=== PATIENT | female | born 1970 | race Two or more races ===

== ENCOUNTER 2025-03-07 08:18 | Outpatient (REF) | payer MEDICAID, SELFPAY ==
--- OUTSIDE RECORDS SUMMARY | 2025-03-07 08:25 | XMS_ITS | Encounter Summary ---
Author Organization [employer] Address [address] [facility] [address] [place] [address] Care Team Providers Care Teacher Public Health Name Role Phone Sade Pandya MD Primary Care Provider [phone] Encounter Details Date Type Department Care Team (Latest Contact Info) Description 03/06/2025 Travel Social History Tobacco Use Types Packs/Day Years Used Date Smoking Tobacco: Never Smokeless Tobacco: Never Alcohol Answer Date Recorded Frequency of Alcohol Consumption Not on file 07/23/2023 Average Number of Drinks Not on file 023 Frequency of Binge Drinking Not on file 02/2023 Score 0 07/23/2023 Depression Answer Date Recorded Patient Health Questionnaire-9 Score 6 04/26/2024 Patient Health Questionnaire-9 Score 6 04/26/2024 Last PHQ-9: Questionnaire Data Not on file 0 04/26/2024 Housing Stability Answer Date Recorded What is your housing situation today? I have jenni pastor 03/06/[address] you li ve. Do you have problems with any of the following? None of the above 03/06/2025 Food Insecurity Answer Date Recorded Within the past 12 months, y ou worried that your food would run out before you got money to buy more: Never True 03/06/2025 Within the past 12 months,th e food you bought just didn't last and you didn't have enough money to get more: Never True Transportation Answer Date Recorded In the past 12 months, has l ack of transportation kept you from medical appts, meetings, work or from getting things needed for daily living? No 03/06/2025 Utilities Answer Date Recorded In the past 12 months, has t he electric, gas, oil or water company threatened to shut off services in your home? No 03/06/2025 Depression Answer Date Recorded Patient Health Questionnaire-2 Score 1 04/26/2024 Internet Access Answer Date Recorded Internet Access Q1 Yes 03/06/2025 Internet Access Q2 Not on file 03/06/2025 Comments Unknown Sex and Gender Information Value Date Recorded Sex Assigned at Female 05/07/2023 11:21 AM EDT Legal Sex Female 11:15 AM EDT Gender Identity Female 05/07/2023 11:21 AM EDT Sexual Orientation Don't know 05/07/2023 11 :21 AM EDT documented as of this encounter Plan of Treatment Upcoming Encounters Date Type Department Care Team (Late st Contact Info) Description 03/14/2025 1:30 PM EDT Clinical Support [facility] [address] [place] [address] 04/17/2025 10:00 AM EDT Office Visit [facility] [address] [place] [address] Sade aPndya MD [address] [place] [address] documented as of this encounter Visit Diagnoses Not on filedocumented in this encounter Additional Health Concerns Assessment Noted Time PHQ-9 Depression Total Score: 6 04/26/20 24 9:56 AM EDT documented as of this encounter Care Teams Teacher Public Health Relationship Specialty Start Date End Date Sade Pandya MD [address] [place] [address] PCP - General Family Medicine 09/01/23 documented as of this encounter
--- OUTSIDE RECORDS SUMMARY | 2025-03-07 08:25 | XMS_ITS | Encounter Summary ---
Author Organization [employer] Address [address] [facility] 7t [place] [address] Care Team Providers Care Daycare Worker Name Role Phone Sade Pandya MD Primary Care Provider [phone] Reason for Visit * Reason Onset Date Comments New Patient 06/19/2023 Encounter Details Date Type Department Care Team (Late st Contact Info) Description 06/19/2023 Telephone [facility] [address] [place] [address] Sade Pandya MD [address] [place], [place] [phone] New Patient Social History Tobacco Use Types Packs/Day Years Used Date Smoking Tobacco: Never Assessed Comments Unknown Sex and Gender Information Value Date Recorded Sex Assigned at Female 05/07/2023 11:21 AM EDT Legal Sex Female 11:15 AM EDT Gender Identity Female 05/07/2023 11:21 AM EDT Sexual Orientation Don't know 05/07/2023 11 :21 AM EDT documented as of this encounter Miscellaneous Notes * Telephone Encounter - Chelsey Duffy - 06/19/2023 11:57 AM EDT PAR Chelsey Freedman called pt to Offer ENGINEERING TEST MECHANIC appt. Pt demographics and insurance information were verified. Pt reports the following medical conditions: Severe Migraines, Blood pressure, Depression, andSleeping problems. Pt is currently taking medication: Sumatriptan 100 Mg Tablet, Metoprolol 25 Mg Tablet, Terazosin, Vitamin D, Zolpidem 1 mg Tablet, and Alprazolam. Pt given ENGINEERING TEST MECHANIC appt with PCP Dr. Pandya on 07/23/2023 @ 1:15 pm. Pt will be sent appt reminder card and medical release form and agrees to complete and to return to medical records prior to ENGINEERING TEST MECHANIC appt. documented in this encounter Plan of Treatment Upcoming Encounters Date Type Department Care Team (Late st Contact Info) Description 03/14/2025 1:30 PM EDT Clinical Support [facility] [address] [place] [address] 04/17/2025 10:00 AM EDT Office Visit [facility] [address] [place] [address] Sade Pandya MD [address] [place] [address] documented as of this encounter Visit Diagnoses Not on filedocumented in this encounter Care Teams Daycare Worker Relationship Specialty Start Date End Date Sade Pandya MD [address] [place] [address] PCP - General Family Medicine 09/01/23 documented as of this encounter
--- OUTSIDE RECORDS SUMMARY | 2025-03-07 08:25 | XMS_ITS | Encounter Summary ---
Author Organization [employer] Address [address] [facility] [address] [place] [address] Care Team Providers Care Goldsmith Apprentice Name Role Phone Sade Pandya MD Primary Care Provider [phone] Encounter Details Date Type Department Care Team (Late st Contact Info) Description 09/22/2023 Orders Only [facility] [address] [place], [place] [phone] Vivek Lema MD [address] [place] [address] Social History Tobacco Use Types Packs/Day Years Used Date Smoking Tobacco: Never Smokeless Tobacco: Never Alcohol Answer Date Recorded Frequency of Alcohol Consumption Not on file 07/23/2023 Average Number of Drinks Not on file 023 Frequency of Binge Drinking Not on file 02/2023 Score 0 07/23/2023 Depression Answer Date Recorded Patient Health Questionnaire-9 Score 13 07/23/2023 Housing Stability Answer Date Recorded What is your housing situation today? I have jenni pastor 08/03/[address] you li ve. Do you have problems with any of the following? None of the above 08/03/2023 Food Insecurity Answer Date Recorded Within the past 12 months, y ou worried that your food would run out before you got money to buy more: Never True 08/03/2023 Within the past 12 months,th e food you bought just didn't last and you didn't have enough money to get more: Never True Transportation Answer Date Recorded In the past 12 months, has l ack of transportation kept you from medical appts, meetings, work or from getting things needed for daily living? No 08/03/2023 Utilities Answer Date Recorded In the past 12 months, has t he electric, gas, oil or water [employer] threatened to shut off services in your home? No 08/03/2023 Depression Answer Date Recorded Patient Health Questionnaire-2 Score 3 07/23/2023 Comments Unknown Sex and Gender Information Value [...] Description 03/14/2025 1:30 PM EDT Clinical Support [facility] [address] [place] [address] 04/17/2025 10:00 AM EDT Office Visit [facility] [address] [place] [address] Sade Pandya MD [address] [place] [address] documented as of this encounter Visit Diagnoses Not on filedocumented in this encounter Additional Health Concerns Assessment Noted Time PHQ-9 Depression Total Score: 13 023 3:03 PM EDT documented as of this encounter Care Teams Goldsmith Apprentice Relationship Specialty Start Date End Date Sade Pandya MD [address] [place] [address] PCP - General Family Medicine 09/01/23 documented as of this encounter
--- OUTSIDE RECORDS SUMMARY | 2025-03-07 08:25 | XMS_ITS | Encounter Summary ---
Author Organization [employer] Address [address] [facility] [address] [place] [address] Care Team Providers Care Trust Accounts Supervisor Name Role Phone Sade Pandya MD Primary Care Provider [phone] Reason for Visit * Reason Onset Date Comments Appointment Confirmation 02/07/2025 Encounter Details Date Type Department Care Team ([facility] st Contact Info) Description 02/07/2025 Telephone [facility] [address] [place], [place] [phone] Sade Pandya MD [address] [place], [place] [phone] Appointment Confirmation Social History Tobacco Use Types Packs/Day Years [...] Recorded Patient Health Questionnaire-2 Score 1 04/26/2024 Comments Unknown Sex and Gender Information Value Date Recorded Sex Assigned at Female 05/07/2023 11:21 AM EDT Legal Sex Female 11:15 AM EDT Gender Identity Female 05/07/2023 11:21 AM EDT Sexual Orientation Don't know 05/07/2023 11 :21 AM EDT documented as of this encounter Miscellaneous Notes * Telephone Encounter - Fiona Disla - 02/07/2025 11:05 AM EDT Tc from pt requesting office visit. Denied triage. Contact pt at [phone] documented in this encounter Plan of Treatment Upcoming Encounters Date Type Department Care Team (Late st Contact Info) Description 03/14/2025 1:30 PM EDT Clinical Support [facility] [address] [place] [address] 04/17/2025 10:00 AM EDT Office Visit [facility] [address] [place] [address] Sade Pandya MD [address] [place] [address] documented as of this encounter Visit Diagnoses Not on filedocumented in this encounter Additional Health Concerns Assessment Noted Time PHQ-9 Depression Total Score: 6 04/26/20 24 9:56 AM EDT documented as of this encounter Care Teams Trust Accounts Supervisor Relationship Specialty Start Date End Date Sade Pandya MD [address] [place] [id number] PCP - General Family Medicine 09/01/23 documented as of this encounter
--- OUTSIDE RECORDS SUMMARY | 2025-03-07 08:25 | XMS_ITS | Encounter Summary ---
Author Organization [employer] Address [address] [address] [place] [address] Care Team Providers Care Family Service Counselor Name Role Phone Sade Pandya MD Primary Care Provider [phone] Encounter Details Date Type Department Care Team (Late st Contact Info) Description 03/06/2025 1:00 PM EDT Office Visit [facility] [address] [place], [place] [phone] Sade Pandya MD [address] [place] [address] Migraine with aura and without status migrainosus, not intractable (Primary Dx); Hypertension, unspecified type Social History Tobacco Use Types Packs/Day Years [...] AM EDT documented as of this encounter Last Filed Vital Signs Vital Sign Reading Time Taken Comments Blood Pressure 134/90 03/06/2025 1:25 PM EDT Pulse 60 03/06/2025 1:06 PM EDT Temperature 36.8 ??C (98.2 ??F) 03/06/2025 1:06 PM ED T Respiratory Rate 20 03/06/2025 1:06 PM EDT Oxygen Saturation 98% 03/06/2025 1:06 PM EDT Inhaled Oxygen Concentration - - Weight 69.8 kg (153 lb 12.8 oz) 03/06/2025 1:06 PM EDT Height 160 cm (5' 3 ) 03/06/2025 1:06 PM EDT Body Mass Index 27.24 03/06/2025 1:06 PM EDT documented in this encounter Plan of Treatment Upcoming Encounters Date Type Department Care Team (Late st Contact Info) Description 03/14/2025 1:30 PM EDT Clinical Support [facility] [address] [place] [address] 04/17/2025 10:00 AM EDT Office Visit [facility] [address] [place] [address] Sade Pandya MD [address] [place] [address] Scheduled Orders Name Type Priority Associated Diagnoses Orde r Schedule CBC auto differential Lab Routine Hypertension, unspecified type Expected: 03/06/2025 (Approximate), Expires: 03/06/2026 Comprehensive Metabolic Panel Lab Routine Hypertension, unspecified type Expected: 03/06/2025 (Approximate), Expires: 03/06/2026 Albumin, Random Urine W/Creatinine Lab Routine Hypertension, unspecified type Expected: 03/06/2025 (Approximate), Expires: 03/06/2026 TSH W/Reflex to FT4 Lab Routine Hypertension, unspecified type Expected: 03/06/2025 (Approximate), Expires: 03/06/2026 Lipid Panel, Standard Lab Routine Hypertension, unspecified type Expected: 03/06/2025 (Approximate), Expires: 03/06/2026 documented as of this encounter Visit Diagnoses Diagnosis Migraine with aura and without status migrainosus, not intractable- Primary Hypertension, unspecified type documented in this encounter Additional Health Concerns Assessment Noted Time PHQ-9 Depression Total Score: 6 04/26/20 24 9:56 AM EDT documented as of this encounter Care Teams Family Service Counselor Relationship Specialty Start Date End Date Sade Pandya MD [address] [place] [address] PCP - General Family Medicine 09/01/23 documented as of this encounter
--- OUTSIDE RECORDS SUMMARY | 2025-03-07 08:25 | XMS_ITS | Clinical Summary ---
Author Organization [employer] Address [address] [facility] [address] [place] [address] Care Team Providers Care Tallow Refiner Name Role Phone Sade Pandya MD Primary Care Provider [phone] Allergies No known active allergies Medications * This document contains information received from the source organization and may not represent a complete record from that organization. Omeprazole 20 MG tablet delayed-release Take 20 mg by mouth in the morning. 90 tablet 1 07/23/20 23 Active Cholecalciferol (Vitamin D3 Gummies) 25 MCG (1000 UT) chewable tablet Chew 1 tablet in the morning. 90 tablet 1 12/14/19 24 Active hydrocortisone (Anusol-HC) 2.5 % rectal creamIndication s:Hemorrhoids, unspecified hemorrhoid type Insert into the rectum 2 times daily. 90 g 12/14/19 24 Active metoprolol succinate XL (Toprol-XL) 25 MG 24 hr tablet TAKE ONE TABLET EVERY MORNING, DO NOT BREAK, CRUSH, DISSOLVE OR CHEW 90 tablet 1 09/20/20 24 Active hydroCHLOROthia zide (HYDRODiuril) 25 MG tablet TAKE ONE TABLET EVERY MORNING 90 tablet 1 09/20/20 24 Active SUMAtriptan (Imitrex) 100 MG tablet TAKE ONE TABLET EVERY DAY NEEDED FOR MIGRAINE 9 tablet 3 01/06/20 25 Active FLUoxetine (PROzac) 10 MG capsuleIndicati ons:Moderate major depression, single episode (CMS/HCC) Take 1 capsule (10 mg) by mouth in the morning. 30 capsule 1 02/22/20 25 025 Active QUEtiapine (SEROquel) 100 MG tabletIndicatio ns:Anxiety Take 1 tablet (100 mg) by mouth at bedtime. 30 tablet 1 02/22/20 25 025 Active ALPRAZolam (Xanax) 1 MG tabletIndicatio ns:Anxiety Take 1 tablet (1 mg) by mouth if needed at bedtime for anxiety or sleep for up to 28 days. 28 tablet 02/22/20 25 025 Active zolpidem (Ambien) 5 MG tabletIndicatio ns:Insomnia, unspecified type Take 1 tablet (5 mg) by mouth if needed at bedtime for sleep for up to 28 days. 28 tablet 02/22/20 25 025 Active topiramate (Topamax Sprinkle) 25 MG capsule TAKE ONE CAPSULE EVERY NIGHT FOR ONE WEEK THEN TAKE TWO CAPSULES NIGHTLY FOR ONE WEEK THEN TAKE THREE CAPSULES EVERY NIGHT 11/12/19 24 025 Discontinued(Th erapy completed) QUEtiapine (SEROquel) 100 MG tabletIndicatio ns:Anxiety Take 1 tablet (100 mg) by mouth at bedtime. 30 tablet 1 01/18/20 25 025 Discontinued(Re order (will not trigger notification to Pharmacy)) zolpidem (Ambien) 5 MG tabletIndicatio ns:Insomnia, unspecified type Take 1 tablet (5 mg) by mouth if needed at bedtime for sleep. 28 tablet 01/18/20 25 025 Discontinued(Re order (will not trigger notification to Pharmacy)) ALPRAZolam (Xanax) 1 MG tabletIndicatio ns:Anxiety Take 1 tablet (1 mg) by mouth if needed at bedtime for anxiety or sleep. 28 tablet 01/18/20 25 025 Discontinued(Re order (will not trigger notification to Pharmacy)) Active Problems Problem Noted Date Diagnosed Date Insomnia 01/17/2025 Chronic pain of right knee 03/11/2024 Polyarthralgia 03/11/2024 Chronic right hip pain 03/11/2024 Mood disorder 03/08/2024 Assessment & Plan (04/26/2024 10:41 AM EDT): With anxiety and psychotic features (visual hallucinations). Intermittent sleep problems. Forgetful. Previously thought to be unipolar depression but now reports history of weeks where I feel happy, fine; then weeks like now where I feel very sad and can't even do anything. Supported by failure of multiple antidepressants. Found increased Quetiapine 200 mg too strong and requests resumption of Quetiapine 100 mg at bedtime. Continue Alprazolam 1 mg BID prn and Zolpidem 10 mg at bedtime prn, although it would be preferable to avoid controlled substances. Pt previously stated she wished to defer counseling referral. Explained to patient that I would not be able to fill out the mental health special circumstances form for citizenship exam. Suggested strategies for practice/prep to minimize anxiety. Since this provieder will be retiring, patient will be referred to new [facility] Psychiatric Prescriber. She is aware that appts will be via televisit and that provider will not be an [facility] employee, and gives permission to share PHI. Any issues or concerns contact the health center. All her questions were answered and I have wished her well. She agrees with the plan. Assessment & Plan (03/08/2024 10:22 AM EDT): With anxiety and psychotic features (visual hallucinations). Intermittent sleep problems. Forgetful. Previously thought to be unipolar depression but now reports history of weeks where I feel happy, fine; then weeks like now where I feel very sad and can't even do anything. Supported by failure of multiple antidepressants. At this time will stop Sertraline 50 mg and will not rechallenge with antidepressant. Will increase to Quetiapine 200 mg at bedtime. Could also consider Depakote or similar mood stabilizer, but deferring for now. Continue Alprazolam 1 mg BID prn and Zolpidem 10 mg at bedtime prn, although it would be preferable to avoid controlled substances. Pt previously stated she wished to defer counseling referral. On 11/19/2023 provider informed the pt thatI would be retiring, and we would only be working together for a few months, but she wanted to start the process anyway. Will have final appt with me in 6 weeks and then transfer care to new [facility] Psychiatric Prescriber. She agrees with the plan. Cervical cancer screening 12/14/2023 Assessment & Plan (12/15/2023 10:24 AM EST): FU Pap results. Per [facility] kimberly will need PAP smear in the next 5 years if today's normal. FU results. No concerns for domestic violence. External prolapsed hemorrhoids 12/14/2023 Varicose veins of both lower extremities 024 Assessment & Plan (12/14/2023 4:36 PM EST): Patient has painful varicose veins on ilateral knees and upper thighs. Referred to Vascular surgery Hemorrhoids 12/14/2023 Assessment & Plan (12/14/2023 4:42 PM EST): Prescribed Hydrocortisone 2.5% for hemorrhoids Episode of recurrent major depressive disorder 0 11/19/2023 Assessment & Plan (01/21/2024 4:11 PM EDT): Lifetime history of depression and anhedonia, with reported history of anxiety and active prescription for Alprazolam, but symptoms do not support this diagnosis. Also has been taking Seroquel 50 mg at bedtime for many years, no longer finding it helpful for sleep, but denies history of hallucinations or mood swings. Single episode of delusional thinking 20 years ago. Poor appetite and unintentional weight loss. Has reportedly tried many different antidepressants without effect. Consider element of personality disorder. We had planned to trial SSRI Sertraline 50 mg, but unfortunately that was not received by the pharmacy. Will now send new Rx for Sertraline 50 mg to be taken every day not prn. Reviewed that efficacy would not be felt immediately, and could require stepwise dose increase in order to really know if it would be helpful. If she feels worse, increased depression, agitation, or distorted thinking she should stop immediately. Continue Seroquel 100 mg at bedtime, Alprazolam 1 mg BID prn and Zolpidem 10 mg at bedtime prn, although it would be preferable to avoid controlled substances. Pt previously stated she wished to defer counseling referral. On 11/19/2023 provider informed the pt thatI would be retiring, and we would only be working together for a few months, but she wanted to start the process anyway. F/U with me in 6 weeks. She agrees with the plan. Assessment & Plan (11/19/2023 3:59 PM EST): Lifetime history of depression and anhedonia, with reported history of anxiety and active prescription for Alprazolam, but symptoms do not support this diagnosis. Also has been taking Seroquel 50 mg at bedtime for many years, no longer finding it helpful for sleep, but denies history of hallucinations or mood swings. Single episode of delusional thinking 20 years ago. Poor appetite and unintentional weight loss. Has reportedly tried many different antidepressants without effect. Consider element of personality disorder. At this time patient is agreeable to a new trial of SSRI Sertraline starting at 50 mg daily, to be taken every day not prn. Reviewed that efficacy would not be felt immediately, and could require stepwise dose increase in order to really know if it would be helpful. Will increase to Seroquel 100 mg at bedtime (which she is often taking anyway, by taking 2 tabs of Seroquel 50 mg). Will also continue Alprazolam 1 mg BID prn and Zolpidem 10 mg at bedtime prn, although it would be preferable to avoid controlled substances. Urged to consider counseling but pt prefers to wait on that. Today 11/19/2023 provider informed the pt thatI would be retiring, and we would only be working together for a few months, but she wanted to start the process anyway. F/U with me in 2-3 weeks. She agrees with the plan. Moderate major depression, single episode 2022 Assessment & Plan (07/28/2023 8:51 AM EDT): Lilo meets criteria for moderate major depressive disorder with symptoms being present more days then not for the past 2 weeks: little interest, or pleasure in doing things. Feeling down. Lack of sleep, lack of energy. Poor appetite. Trouble concentrating. She also meets criteria for generalized anxiety, reporting symptoms being present more times then not for more then 6 months: feeling anxious, not being able to control worry, worrying too much, trouble relaxing, restlessness, and irritability. At this time Lilo, requests to be referred for psychiatric medication. Declines referral for therapy. PHQ9-14 GAD7- 13 At this time Lilo Felipe meets criteria for Visit Diagnoses: Problem List Items Addressed This Visit Other Moderate major depression, single episode ([facility]/HCC) APRIL (generalized anxiety disorder) Patient ready to address current needs Yes Strengths include Willingness to engage, knows what supports are needed, awareness of symptoms. PLAN: 1. Follow up with [facility] [place]: Not recommended for follow-up 2. Patient goal is to reengage in psychopharmocology, as a support in controlling symptoms 3. Behavioral Recommendations a. Coping skills b. Reach out for support as needed c. Referral to Armin Howard APRIL (generalized anxiety disorder) 07/28/2023 Migraine with aura and witho ut status migrainosus, not intractable 07/23/2023 Vitamin D deficiency 07/23/2023 Primary hypertension 07/23/2023 Gastroesophageal reflux disease without esophagi tis 07/23/2023 Assessment & Plan (07/23/2023 1:39 PM EDT): -Patient will be prescribed Omeprazole. Encounters * This document contains information received from the source organization and may not represent a complete record from that organization. Date Type Department Care Team Description 03/06/2025 1:00 PM EDT Office Visit [facility] [address], [place] [phone] Sade Pandya MD Migraine with aura and without status migrainosus, not intractable (Primary Dx); Hypertension, unspecified type 03/06/2025 Travel 02/24/2025 Patient Outreach [facility] [address] [place] [phone] Sade Pandya MD Pre-visit Planning (Pre visit planning unable to LVM ) 02/22/2025 Telephone [facility] [address], [place] [phone] Sade Pandya MD Care Coordination 02/17/2025 Telephone [facility] [address] [place], [place] [phone] Sade Pandya MD Form 02/07/2025 Telephone [facility] [address], [place] [phone] Sade Pandya MD Appointment Confirmation 01/05/2025 Refill [facility] [address], [place] [phone] Sade Pandya MD from Last 3 Months Social History Tobacco Use Types Packs/Day Years Used Date Smoking Tobacco: Never Smokeless Tobacco: Never Tobacco Cessation:Counseling Given: Not Answered Alcohol Answer Date Recorded Frequency of Alcohol [...] Don't know 05/07/2023 11 :21 AM EDT Last Filed Vital Signs Vital Sign Reading [...] Mass Index 27.24 03/06/2025 1:06 PM EDT Plan of Treatment Upcoming Encounters Date Type Department Care Team (Late st Contact Info) Description 03/14/2025 1:30 PM EDT Clinical Support [facility] [address] [place] [address] 04/17/2025 10:00 AM EDT Office Visit [facility] [address] [place] [address] Sade Pandya MD [address] [place] [address] Health Maintenance Due Date Last Done Comments CT Colonography 1970 Colonoscopy 1968 FIT 1968 FOBT 1970 Sigmoidoscopy 1970 Disability Screening 1968 DTaP/Tdap/Td Vaccines (1 - Tdap) 1987 Hepatitis B Vaccines (1 of 3 - 19+ 3-dose series) 1987 Mammogram 2008 Pneumococcal Vaccine: 50+ Years (1 of 1 - PCV) 2018 Zoster Vaccines (1 of 2) 2018 COVID-19 Vaccine ( - 2023-2 5 season) 2024 Influenza Vaccine (#1) 2024 Depression Screening 04/26/2025 04/26/2024, 04/26/2024 Alcohol/Substance Use Screening 03/06/2026 03/06/2025 SDOH Screening 03/06/2026 03/06/2025 Tobacco Screening 03/06/2026 03/06/2025 Colorectal Cancer Screening 08/05/2026 FIT DNA/Cologuard 08/05/2026 08/05/2023 Lipid Panel 08/10/2028 08/10/2023 Cervical Cancer Screening 12/14/2028 HPV/Cotest 12/14/2028 12/14/2023 Pap Smear 12/14/2028 12/14/2023 RSV Patients and Patients Aged 60 years or older (1 - 1-dose 75+ series) 2043 HIV Screening Completed 05/24/2024, 08/10/2023 Hepatitis C Screening Completed 05/24/2024 , 08/10/2023 HIB Vaccines Aged Out No longer eligi ble based on patient's age to complete this topic HPV Vaccines Aged Out No longer eligi ble based on patient's age to complete this topic Hepatitis A Vaccines Aged Out No long er eligible based on patient's age to complete this topic IPV Vaccines Aged Out No longer eligi ble based on patient's age to complete this topic Meningococcal B Vaccine Aged Out No l onger eligible based on patient's age to complete this topic Meningococcal Vaccine Aged Out No raghav lou eligible based on patient's age to complete this topic RSV under 20 months Aged Out No longe r eligible based on patient's age to complete this topic Rotavirus Vaccines Aged Out No longer eligible based on patient's age to complete this topic Procedures Procedure Name Priority Date/Time Associated Diagnosis Comments HEPATITIS C AB W/REFL TO HCV RNA, QN, PCR Routine 05/24/2024 8:04 AM EDT Paraproteinemia HIV 1/2 ANTIGEN/ANTIBODY, FOURTH GENERATION W/RFL Routine 05/24/2024 8:04 AM EDT Paraproteinemia HPV MRNA E6/E7 REFLEX TO HPV 16, 18/45 Routine 12/14/2023 4:23 PM EST PAP SMEAR Routine 12/14/2023 4:23 PM EST Cervical cancer screening LIPID PANEL, STANDARD Routine 08/10/2023 8:21 AM EDT Primary hypertension LAB COLOGUARD?? COLON CANCER SCREEN Routine 08/05/2023 7:12 AM EDT Colon cancer screening from Last 3 Months or Most Recently Relevant to Health Maintenance Results * Hepatitis C Antibody with Reflex to HCV, RNA, Quantitative, Real-Time PCR (05/24/2024 8:04 AM EDT) Hepatitis C Antibody Nonreactive Nonreactive [facility] Comment:Antibodies to HCV no t detected; does not exclude early acuteHCV infection. Blood Venous blood specimen / Unknown 05/24/2024 8:04 AM EDT 05/24/2024 2:02 PM EDT us Sade Pandya MD LAB BLOOD ORDERABLES Final Re sult Performing Organization Address [facility]/ZIP Co de Phone Number [facility] [address] [place] [address] [phone] * HIV-1/2 Antigen and Antibodies, Fourth Generation, with Reflexes (05/24/2024 8:04 AM EDT) HIV AB/AG Nonreactive Nonreactive [facility] Comment:HIV-1 p24 Ag and/or HIV-1/HIV-2 Ab not detected.A test result that is nonreactive does not exclude thepossibility of exposure to or infection with HIV-1 and/orHIV-2. Nonreactive results in this assay for individualswith prior exposure to HIV-1 and/or HIV-2 may be due toantigen and antibody levels that are below the limit ofdetection of this assay.The [employer] HIV Ag/Ab Combo assay result andsupplemental assay results should be interpreted inconjunction with the patient's clinical presentation,history and other laboratory results. If the results areinconsistent with clinical evidence, additional testing issuggested to confirm the result. Blood Venous blood specimen / Unknown 05/24/2024 8:04 AM EDT 05/24/2024 2:02 PM EDT us Sade Pandya MD LAB BLOOD ORDERABLES Final Re sult Performing Organization Address [facility]/ZIP Co de Phone Number [facility] [address] [place] [address] [phone] * HPV mRNA E6/E7 w/Reflex to HPV Genotypes 16, 18/45 (12/14/2023 4:23 PM EST) HPV nRNA E6/E7 Not Detected Not Detected [facility] Comment:Methodology: Transcr iption-Mediated AmplificationThis assay detects E6/E7 viral messenger RNA (mRNA) from 14high-risk HPV types (16,18,31,33,35,39,45,51,52,56,58,59,66,68).Cervical sources are required for HPV testing.If a vaginal source from a patient who has had atotal hysterectomy with removal of cervix wassubmitted, please contact the testing laboratoryfor alternative testing options.For additional information, please refer tohttp://education.Nativo/faq/FJL676c9(This link if provided for information/educational purposes only.)THIS TEST WAS PERFORMED AT:[facility] [place] [phone] KITCHEN MD HPV mRNA E6/E7 [facility] HPV 16 [facility] HPV 18/45 RNA [facility] 12/14/2023 4:23 PM EST 12/15/2023 12:15 PM EST us Sade Pandya MD LAB CYTOLOGY ORDERABLES Final Result [facility] [address] [place] [phone] * Pap Smear (12/14/2023 4:23 PM EST) Swab 12/14/2023 4:23 PM EST 12/15/2023 12:15 PM EST Narrative [facility] - 12/25/2023 11:42 AM EST ----- ------- Name: LILO FELIPE ? Age/Sex: 53/F ? : 1970 Unit#: [id number] ?? Attend Dr: Sade Pandya MD ?Re12/14/23 ?Status: DEP REF ? Location: HO.CHCLNP ? Disch: ? ----- ------- SPEC : [id number] ? RECD: 12/15/23-5 ? STATUS: ??SOUT ? REQ NUM: [id number] ? JALIL: 12/14/23-3 ? SUBM DR: Sade Pandya MD ? ENTERED: ??12/16/23-808 ?SP TYPE: Pap Smr ?OTHR : ? ORDERED: ??Pap Smear ? Interpretation ?? Satisfactory for evaluation. ?? Mild inflammation. ?? Negative for intraepithelial lesion or malignancy. ?HPV mRNA E6/E7: ?NOT DETECTED ? This assay detects E6/E7 viral messenger RNA (mRNA) from 14 high-risk HPV types (16, 18, ?? 31, 33, 35, 39, 45, 51, 52, 56, 58, 59, 66, 68) ?? HPV testing performed by [facility], [place], [place]. ??See reference laboratory ?? portion of the EMR for entire report. ?Clinical Information LMP: Postmenopausal Previous PAP test: Unknown date/findings ? Material Received ?? ThinPrep-Vaginal/Cervical ----- ------- Signed (signature on file) FADUMO Dejesus (ASCP) 12/25/23 1142 ? ----- ------- ? END OF REPORT ? us Sade Pandya MD LAB CYTOLOGY ORDERABLES Final Result Performing Organization Address [facility] Co de Phone Number [facility] [address] [place] [address] [phone] * (ABNORMAL) Lipid Panel, Standard (08/10/2023 8:21 AM EDT) Triglycerides 80 <150 mg/dL [facility] Comment:Desirable Triglyceri de: less than 150 mg/dLBorderline High Triglyceride 150-199 mg/dLHigh Triglyceride: 200-499 mg/dLVery High Triglyceride: greater than or equal to 5OO mg/dL Cholesterol 179 <200 mg/dL [facility] Comment:Desirable Cholestero l: less than 200 mg/dLBorderline High Cholesterol: 200-239 mg/dLHigh Cholesterol: greater than 239 mg/dL LDL Cholesterol Calculated 111(H) <100 mg/dL [facility] Comment:Desirable LDL: less than 100 mg/dLNear Optimal/Above Optimal LDL: 110- 129 mg/dLBorderline High LDL: 130-159 mg/dLHigh LDL: 160-189 mg/dLVery High LDL: greater than or equal to 190 mg/dL HDL Cholesterol 52 >40 mg/dL [facility] Comment:Desirable HDL: great er than 40 mg/dL Note: This HDL assay may give artificially low results in patients with liver disease. Blood Venous blood specimen / Unknown 08/10/2023 8:21 AM EDT 08/10/2023 2:48 PM EDT us Sade Pandya MD LAB BLOOD ORDERABLES Final Re sult Performing Organization Address [facility]/ZIP Co de Phone Number [facility] [address] [place] [address] [phone] * Cologuard?? colon cancer screening (08/05/2023 7:12 AM EDT) Cologuard Result Negative Negative 08/12/20 2:34 AM EDT [facility] (CLIA #:[id number]) Comment: NEGATIVE TEST RESULT. A negative Cologuard result indicates a low likelihood that a colorectal cancer (CRC) or advanced adenoma (adenomatous polyps with more advanced pre-malignant features) ??is present. The chance that a person with a negative Cologuard test has a colorectal cancer is less than 1 in 1500 (negative predictive value >99.9%) or has an ??advanced adenoma is less than ??5.3% (negative predictive value 94.7%). These data are based on a prospective cross-sectional study of 10,000 individuals at average risk for colorectal cancer who were screened with both Cologuard and colonoscopy. (Richard Nuno et al, N Engl J Med 2014;370(14):1286- 1297) The normal value (reference range) for this assay is negative. COLOGUARD RE-SCREENING RECOMMENDATION: Periodic colorectal cancer screening is an important part of preventive healthcare for asymptomatic individuals at average risk for colorectal cancer. ??Following a negative Cologuard result, the [place] [employer] and U.S. Multi-Society Task Force screening guidelines recommend a Cologuard re-screening interval of 3 years. References: [place] [employer] Guideline for Colorectal Cancer Screening: https://www.cancer.org/cancer/sgwvh-rtqhij-dxxmnd/kdflipasy-osqdvckip-xdqlhwu/ac s-rec ommendations.html.; Leonardo DK, Saul CR, Humberto De La [place], Colorectal Cancer Screening: Recommendations for Physicians and Patients from the U.S. Multi-Society Task Force on Colorectal Cancer Screening , Am J Gastroenterology 2017; 112:7761-7491. TEST DESCRIPTION: Composite algorithmic analysis of stool DNA-biomarkers with hemoglobin immunoassay. ?? Quantitative values of individual biomarkers are not reportable and are not associated with individual biomarker result reference ranges. Cologuard is intended for colorectal cancer screening of adults of either sex, 45 years or older, who are at average-risk for colorectal cancer (CRC). Cologuard has been approved for use by the U.S. FDA. The performance of Cologuard was established in a cross sectional study of average-risk adults aged 50-84. Cologuard performance in patients ages 45 to 49 years was estimated by sub-group analysis of near-age groups. Colonoscopies performed for a positive result may find as the most clinically significant lesion: colorectal cancer [4.0%], advanced adenoma (including sessile serrated polyps greater than or equal to 1cm diameter) [20%] or non- advanced adenoma [31%]; or no colorectal neoplasia [45%]. These estimates are derived from a prospective cross-sectional screening study of 10,000 individuals at average risk for colorectal cancer who were screened with both Cologuard and colonoscopy. (Richard Gooden al, N Engl J Med 2014;370(14):6400-5482.) Cologuard may produce a false negative or false positive result (no colorectal cancer or precancerous polyp present at colonoscopy follow up). A negative Cologuard test result does not guarantee the absence of CRC or advanced adenoma (pre-cancer). The current Cologuard screening interval is every 3 years. ([place] [employer] and U.S. Multi-Society Task Force). Cologuard performance data in a 10,000 patient pivotal study using colonoscopy as the reference method can be accessed at the following location: www.[employer]/results. Additional description of the Cologuard test process, warnings and precautions can be found at www.GameWithoguard.com. Stool specimen (specimen) 08/05/2023 7:12 AM EDT 08/06/2023 8:15 PM EDT us Sade Pandya MD LAB MOLECULAR DIAGNOSTICS ORD ERABLES Final Result [facility] Systems (CLIA #:[id number]) [place] [address], from Last 3 Months or Most Recently Relevant to Health Maintenance [place] [place] [address] Care Teams Tallow Refiner Relationship Specialty Start Date End Date Sade Pandya MD [address] [place] [address] PCP - General Family Medicine 09/01/23
[2025-03-07 14:19] LABS: MANUAL DIFF FLAG NO
[2025-03-07 14:26] LABS: Basophils Percent Auto 0.4 % (0-2); Eosinophils Absolute Auto 0.1 X10*3/uL (0.0-0.4); Hematocrit 44.1 % (37.0-47.0); Hemoglobin 14.5 g/dl (12.0-16.0); Imm Gran Abs Auto 0.01 X10*3/uL (0.00-0.03); Imm Gran Pct Auto 0.2 % (0.0-0.4); Lymphocytes Absolute Auto 1.7 X10*3/uL (1.2-4.9); Lymphocytes Percent Auto 34.4 % (20-40); Mean Corpuscular HGB Conc 32.9 g/dl (31.0-35.0); Mean Corpuscular Hemoglobin 30.1 pg (27.0-33.0); Mean Corpuscular Volume 91.7 fL (80.0-98.0); Mean Platelet Volume 11.6 fL (9.4-12.3); Monocytes Absolute Auto 0.4 X10*3/uL (0.1-1.2); Monocytes Percent Auto 8.5 % (2-11); Neutrophils Absolute Auto 2.7 x10*3/uL (2.0-8.3); Neutrophils Percent Auto 55.5 % (45-73); Platelet Count 254 X10*3/uL (160-400); Red Blood Count 4.81 X10*6/uL (4.20-5.50); Red Cell Distribution Width 13.2 % (11.0-16.0); White Blood Count 4.9 X10*3/uL (4.8-10.8)
[2025-03-07 14:50] LABS: Alanine Aminotransferase 21 U/L (0-31); Albumin Level 4.3 g/dL (3.5-5.0); Alkaline Phosphatase 67 U/L (39-117); Anion Gap 12 (12-20); Aspartate Amino Transferase 30 U/L (5-31); Bilirubin Total 0.3 mg/dL (0.0-1.0); Blood Urea Nitrogen 14 mg/dL (9-16); Calcium 9.8 mg/dL (8.4-10.2); Carbon Dioxide 31 mmol/L (22-29); Chloride 103 mmol/L (96-108); Cholesterol 175 mg/dL (<200); Estimated Glomerular Filt Rate > 60; Glucose Random 89 mg/dL (60-115); HDL Cholesterol 53 mg/dL (>40); LDL Cholesterol Calculated 101 mg/dL (<100); Potassium 4.5 mmol/L (3.3-5.1); Sodium 141 mmol/L (135-145); Total Protein 8.4 g/dL (6.5-8.0); Triglycerides 109 mg/dL (<150)
[2025-03-07 15:12] LABS: TSH reflex Free T4 3.69 uIU/mL (0.32-4.0)
== END 2025-03-07 08:19 | disposition home or self-care (01) ==
LOC: HO.CHCLDS 08:18
PROVIDERS: Visit Provider Family Medicine
DX: I10 Essential (primary) hypertension (principal)
CPT/HCPCS: 36415; 80053; 80061; 84443; 85025